=== PATIENT | male | born 1940 | race Caucasian/White ===

== ENCOUNTER 2025-04-04 09:07 | Outpatient (REF) | payer MEDICARE, BC, SELFPAY ==
--- NOTE | ~2025-04-04 | MR_ITS ---
EXAMINATION: MR BRAIN WITHOUT AND WITH CONTRAST CLINICAL INFORMATION: Right-sided hearing loss. COMPARISON: None available. TECHNIQUE: Multiplanar, multisequence MRI of the brain was obtained before and after the intravenous administration of 10 mL gadolinium based without reported immediate complications. FINDINGS: The cochlear and vestibular components of the 8th cranial nerves demonstrated no signal abnormality or enhancing lesion. No enhancing lesion/mass in the perimesencephalic cisterns, cerebellopontine angle cisterns or the brainstem. The anterior inferior cerebellar arteries are Type 1, bilaterally. No restricted diffusion. No acute intracranial hemorrhage, mass effect, midline shift, hydrocephalus or herniation. Bilateral multifocal patchy and punctate deep periventricular white matter hyperintense T2 FLAIR signal involving centrum semiovale and negro radiata. 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 Hyperintense T2 FLAIR patchy and punctate signal mid leighann. Flow-void signal within the main cerebral vessels is normal. Prominence of the extra-axial CSF spaces cerebral sulci and ventricles. Sellar/suprasellar cistern demonstrated no gross signal abnormality or masses. Craniocervical junction demonstrates normal position of the cerebellar tonsils. No abnormal enhancement within the intra-axial or the extra-axial compartment of the cranium.. MR/MR head/brain wo/w con IMPRESSION: No vestibular schwannoma. 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 Mild global cerebral atrophy. Superimposed normal pressure hydrocephalus cannot be entirely excluded. Electronically signed by: Zach Todd MD 04/04/2025 10:34 AM EDT
[2025-04-04] MEDS: gadobutroL 10 ML VIAL IVPUSH (10:08)
== END 2025-04-04 09:08 | disposition home or self-care (01) ==
LOC: HO.MRI 09:07
PROVIDERS: PCP Pediatrics; Visit Provider Otolaryngology
DX: D33.3 Benign neoplasm of cranial nerves (principal); H90.41 Sensorineural hearing loss, unilateral, right ear, with unrestricted hearing on the contralateral side
CPT/HCPCS: 70553; A9585

== ENCOUNTER → 2025-04-04 09:34 | Outpatient (BNV) | payer MEDICARE, BC, SELFPAY | PROVIDERS: PCP Pediatrics; Visit Provider Radiology Diagnostic Radiology | DX: H91.91 Unspecified hearing loss, right ear (principal) | CPT/HCPCS: 70553 ==